=== PATIENT | male | born 1955 | race Caucasian/White ===

== ENCOUNTER 2023-01-01 00:09 | Emergency (ER) | payer MEDICARE, OTHER, SELFPAY ==
--- NOTE | ~2023-01-01 | CT_ITS ---
EXAMINATION: CT brain wo con DATE: 01/01/2023 00:43 INDICATION: Fall with head injury TECHNIQUE: Computed tomography (CT) of the head was performed without intravenous contrast. Sagittal and coronal reconstructions were performed. The mA was adjusted according to patient size. Iterative reconstruction technique was employed. The dose-length product was 605.33 mGy-cm. COMPARISON: None FINDINGS: Left parieto-occipital scalp hematoma with likely laceration. No fracture. No acute intracranial hemo rrhage, acute infarction or abnormal extra axial fluid collection. There is moderate scattered white matter hypoattenuation consistent with chronic small vessel ischemic disease. Ventricles are normal and symmetric. No mass/mass effect. Intracranial calcified cerebral atheroscler osis is noted. The orbits, paranasal sinuses and mastoid air cells are normal. IMPRESSION: 1. No fracture or acute intracranial process. 2. Moderate scattered white matter hypoattenuation consistent with chronic small vessel ischemic dise ase. Reviewed, dictated and finalized at location A. IMPRESSION: 1. No fracture or acute intracranial process. 2. Moderate scattered white matter hypoattenuation consistent with chronic smal l vessel ischemic disease.
--- NOTE | ~2023-01-01 | XR_ITS ---
EXAMINATION: XR knee LT min 4V DATE: 01/01/2023 02:03 INDICATION: Left knee pain and abrasions post fall TECHNIQUE: Anteroposterior, 2 oblique and crosstable lateral views of the left knee were obtained COMPARISON: None. FINDINGS: Alignment is normal. No fracture. Mild to moderate joint space narrowing at the patellofemoral giana rtment of the left knee. Tiny marginal osteophytes at the medial lateral compartments. Small heteroto pic ossicle along the head of the fibula which could be either enthesopathic or sequela of old trauma . No joint effusion/layering lipohemarthrosis. Prepatellar soft tissue swelling. IMPRESSION: 1. No left knee joint effusion or acute osseous abnormality. 2. Tricompartmental osteoarthritis, predominant with mild to moderate severity at the patellofemoral compartment. Reviewed, dictated and finalized at location A.
--- NOTE | ~2023-01-01 | XR_ITS ---
EXAMINATION: XR knee RT min 4V DATE: 01/01/2023 02:04 INDICATION: Right knee pain and abrasions post fall TECHNIQUE: Anteroposterior, 2 oblique and crosstable lateral views of the right knee were obtained COMPARISON: None. FINDINGS: Old healed fracture deformity at the proximal neck of the right fibula. Alignment remains essentially anatomic. No other fractures identified. Mild tricompartmental osteoarthritis with small marginal os teophytes in all 3 compartments. Joint spaces appear relatively preserved although this could be unde restimated at the medial and lateral compartments on nonweightbearing imaging. Small amount of enthes opathic ossification at the distal quadriceps tendon. Mild prepatellar soft tissue swelling. Possible small right knee joint effusion. Vascular calcifications at the distal thigh and proximal calf. IMPRESSION: 1. Mild tricompartmental osteoarthritis at the right knee. No acute osseous abnormality. Reviewed, dictated and finalized at location A. IMPRESSION: 1. Mild tricompartmental osteoarthritis at the right knee. No acute osseous abn ormality.
--- NOTE | ~2023-01-01 | CT_ITS ---
EXAMINATION: CT cervical spine wo con DATE: 01/01/2023 00:44 INDICATION: Fall with head injury TECHNIQUE: Computed tomography (CT) of the cervical spine was performed without intravenous contrast. Automated exposure control and iterative reconstruction technique were employed. The dose-length pro duct was 770.79 mGy-cm. COMPARISON: None FINDINGS: Alignment is normal. Vertebral body heights are normal. No fracture. Moderate disc height loss at C6- C7 and C7-T1. Mild disc height loss at C4-C5 and at multiple levels in the upper thoracic spine. Mode rate right-sided and severe left-sided uncovertebral osteoarthritis resulting in mild bilateral neura l foraminal stenosis at C5-C6 and moderate left-sided uncovertebral osteoarthritis at C6-C7 contribut ing to moderate left neural foraminal stenosis. Mild uncovertebral osteoarthritis at many of the warner ining cervical levels. Moderate facet osteoarthritis on the right at C4-C5 with mild facet osteoarthr itis at the remaining cervical levels. Small posterior disc osteophyte complex resulting in minimal c entral canal stenosis at C5-C6. Atherosclerotic calcifications at the bilateral carotid bulbs. Cervic al soft tissues are unremarkable. Mild dependent atelectasis in the visualized upper lungs. Thoracic aorta is normal in caliber. Median sternotomy wires and mediastinal surgical clips are seen, likely f rom prior coronary artery bypass grafting. Calcified right hilar and mediastinal lymph nodes consiste nt with old granulomatous disease. IMPRESSION: 1. Moderate cervical spondylosis. No acute osseous abnormality. Reviewed, dictated and finalized at location A.
[2023-01-01 00:11] VITALS: BP 144/76; PULSE 90; RESP 18; TEMP 36.6; O2SAT 95
--- NOTE | 2023-01-01 00:55 | PC.NURSE ---
Pt also admits to drinking alcohol. Unknown amount.
--- NOTE | 2023-01-01 01:21 | ED.FALL ---
HPI - Fall General Chief Complaint: Fall <Danni Asencio PA-C - Last Filed: 01/01/23 03:17> Stated Complaint: fall <Danni Asencio PA-C - Last Filed: 01/01/23 03:17> Time Seen by Provider: 01/01/23 00:19 <Danni Asencio PA-C - Last Filed: 01/01/23 03:17> History of Present Illness HPI Narrative: 67-year-old male with a history of 5 coronary artery stents reports for evaluation post fall. Patient reports he had 3 12 ounce beers tonight, was in the kitchen doing his dishes when he turned around and tripped over the trash can causing him to hit his head against the counter. Denies LOC. Reports he also injured his bilateral knees. Denies vision changes, dizziness, chest pain or shortness of breath prior to the fall. Last tetanus unknown. Denies drug use. <DOC Nunez Last Filed: 01/01/23 03:17> Related Data Allergies/Adverse Reactions: Allergies Allergy/AdvReac Type Severity Reaction Status Date / Time Sulfa (Sulfonamide Allergy Hives Verified 01/06/23 10:22 Antibiotics) <DOC Nunez Last Filed: 01/01/23 03:17> Review of Systems Review of Systems: CONSTITUTIONAL: Denies fever, chills EYES: Denies visual changes, redness, or discharge. ENT: Denies rhinorrhea, congestion, sore throat, or otalgia. CARDIOVASCULAR: Denies chest pain, palpitations, or edema. RESPIRATORY: Denies cough or dyspnea. GASTROINTESTINAL: Denies abdominal pain, nausea, vomiting, or diarrhea. GENITOURINARY: Denies dysuria or hematuria. SKIN: Denies rash or itching. MUSCULOSKELETAL: Denies back pain, joint pain, or myalgia. NEUROLOGIC: Denies headache, numbness, dizziness, or weakness. PSYCHIATRIC: Denies anxiety or depression. <Danni Asencio PA-C - Last Filed: 01/01/23 03:17> Exam Narrative: GENERAL: Well-appearing, well-nourished, and in no acute distress. Pt appears intoxicated. HEAD: 3 cm linear vertical laceration to posterior scalp. No tenderness to remaining scalp. No hematomas or other lesions. No foley sign or raccoon eyes. EYES: PERRLA and EOMI. ENT: Nares clear, no rhinorrhea or epistaxis. Mucous membranes moist. Oropharynx without tonsillar hypertrophy exudate or other lesions. Bilateral TMs pearly perez nonbulging, no hemotympanums NECK: Supple. No adenopathy or masses. No vertebral midline tenderness, step-offs or deformities. CHEST: Clear to auscultation. No respiratory distress. No wheezes rales or rhonchi HEART: Regular rate and rhythm. No murmur heard. Normal peripheral pulses. ABDOMEN: Soft, nontender, nondistended, normal active bowel sounds. EXTREMITIES: Diffuse tenderness to bilateral knees. Small abrasion overlying the anterior aspect of the left knee. Full range of motion of both knees. PT pulses identified on ultrasound. No tenderness to BUE. No tenderness to hips or pelvis. Full ROM of bilteral hips. Radial pulses 2+. SKIN: Warm, dry, no rash. NEURO: No focal deficits. Alert and oriented x3. CN II-XII intact. Strength 5/5 in BUE and BLE. Sensation intact throughout. PSYCH: Normal mood and affect. <Danni Asencio PA-C - Last Filed: 01/01/23 03:17> Course DIRECTOR OF ENTERTAINMENT/PA Physician Supervision This is a was performed by both a physician and an APC. I performed all aspects of the MDM as documented w/ the following additions: 59-year-old male presenting ED intoxicated after mechanical fall. The patient has laceration to his head which was repaired. [place]allpa components of all procedures performed under my supervision CT head and C-spine were negative for acute injury. At this time patient was conversant and able to walk with a steady gait. He is discharged in custody of his friend and return precautions given.All questions answered. Patient in agreement w/ disposition. <Kevan Rooney MD - Last Filed: 01/06/23 19:20> Vital Signs Vital signs: Vital Signs Temperature 98 F 01/01/23 00:11 Pulse Rate 90 01/01/23 00:11 Respiratory Rate 18 0
[2023-01-01 01:54] LABS: Basophils Absolute Auto 0.1 K/mm3 (0.0-0.1); Basophils Percent Auto 0.8 % (0.2-1.2); Eosinophils Absolute Auto 0.2 K/mm3 (0-0.3); Eosinophils Percent Auto 2.3 % (0-4.4); Hematocrit 54.8 % (42.0-52.0); Hemoglobin 17.9 g/dL (14.0-18.0); Immature Granulocyte Absolute 0.05 K/mm3 (0.00-0.031); Immature Granulocyte Percent A 0.6 % (0-0.5); Lymphocytes Absolute Auto 2.31 K/mm3 (0.9-3.2); Lymphocytes Percent Auto 26.1 % (18.3-44.2); Mean Corpuscular HGB Conc 32.7 g/dl (32-36); Mean Corpuscular Hemoglobin 31.7 pg (26-34); Mean Corpuscular Volume 97.2 fl (80-100); Mean Platelet Volume 10.2 fl (7.4-10.4); Monocytes Absolute Auto 0.8 K/mm3 (0.1-0.6); Monocytes Percent Auto 8.5 % (2.6-8.5); Neutrophils Absolute Auto 5.5 K/mm3 (1.3-6.7); Neutrophils Percent Auto 61.7 % (45.5-73.1); Platelet Count Result 259 k/mm3 (150-375); Red Blood Count 5.64 M/mm3 (4.6-6.20); Red Cell Distribution Width 13.2 % (11.5-14.5); White Blood Count 8.9 K/mm3 (4.5-10.0)
[2023-01-01 02:01] LABS: Ethanol 245 mg/dL (<10)
[2023-01-01 02:02] LABS: Alanine Aminotransferase 35 U/L (6-50); Albumin Level 4.5 g/dL (3.5-5.1); Alkaline Phosphatase 84 U/L (38-126); Anion Gap 10 mmol/L (8-16); Aspartate Amino Transferase 32 U/L (17-59); Bilirubin,Total 0.5 mg/dL (0.2-1.3); Blood Urea Nitrogen 13 mg/dL (9-20); Calcium 8.8 mg/dL (8.4-10.2); Carbon Dioxide 28 mmol/L (22-30); Chloride 106 mmol/L (98-107); Estimated CRCL calculation 76 ml/min; Estimated Glomerular Filt Rate > 60; Glucose 113 mg/dL (65-110); Potassium 4.5 mmol/L (3.4-5.0); Sodium 144 mmol/L (137-145)
[2023-01-01 02:05] VITALS: O2SAT 94
[2023-01-01 02:06] VITALS: BP 130/86; PULSE 86; RESP 18; TEMP 36.6; O2SAT 96
[2023-01-01 03:43] VITALS: BP 122/81; PULSE 80; RESP 18; TEMP 36.6; O2SAT 99
== END 2023-01-01 03:44 | disposition home or self-care (01) ==
PROVIDERS: Emergency Provider Physician Assistant
DX: S01.01XA Laceration without foreign body of scalp, initial encounter (principal); M25.561 Pain in right knee; F10.920 Alcohol use, unspecified with intoxication, uncomplicated; W01.198A Fall on same level from slipping, tripping and stumbling with subsequent striking against other object, initial encounter; Z95.5 Presence of coronary angioplasty implant and graft; Z23 Encounter for immunization
CPT/HCPCS: 12002; 36415; 70450; 72125; 73564; 80053; 80307; 85025; 90471; 90715; 99284

== ENCOUNTER 2023-01-06 10:19 | Emergency (ER) | payer MEDICARE, OTHER, SELFPAY ==
[2023-01-06 10:20] VITALS: BP 140/92; PULSE 82; RESP 17; TEMP 36.4; O2SAT 96
--- NOTE | 2023-01-06 10:43 | ED_ITS ---
HPI - Recheck/Abnormal Lab/Rx General Chief Complaint: Recheck/Abnormal Lab/Rx Stated Complaint: needs alva removed Time Seen by Provider: 01/06/23 10:28 History of Present Illness HPI narrative: Patient is a 67-year-old male here requesting staple removal. He has alva placed only 5 days ago in the ED after he had a fall when he was intoxicated. States that the wound has been healing well and he wanted to come in today because his is getting surgery today and thought it would be convenient to come to the ED at the same time. No further complaints. He was told to have sutures removed in 7 days. Related Data Allergies Allergy/AdvReac Type Severity Reaction Status Date / Time Sulfa (Sulfonamide Allergy Hives Verified 01/06/23 10:22 Antibiotics) Review of Systems Review of Systems: Gen.: Denies fevers or chills Eyes: Denies eye pain or visual change ENT: Denies congestion Respiratory: Denies shortness of breath or cough CV: Denies chest pain or palpitations GI: Denies abdominal pain nausea, emesis or diarrhea : denies burning, urgency, frequency or hematuria Musculoskeletal: Denies back pain or muscle pain Neuro: Denies numbness, tingling, weakness or focal weakness Skin: Denies rash Except as documented, all other systems reviewed and negative Exam Narrative: Gen: Alert, oriented, no acute distress Eyes: EOMI, no icterus Pulm: Respirations even and unlabored, symmetric thorax expansion, no audible st ridor or visible cyanosis CV: Regular rate per telemetry GI: No distension, no voluntary/involuntary guarding Neuro: AOx4, moves all extremities without apparent difficulty or weakness, follows commands Skin: Patient has [address] to the right posterior head with an underlying scab Psych: Normal mood/affect, insight/judgement good, adequate fund of knowledge, recent/remote memory intact Course Vital Signs Vital signs: Vital Signs Temperature 97.6 F 01/06/23 10:20 Pulse Rate 82 01/06/23 10:20 Respiratory Rate 17 01/06/23 10:20 Blood Pressure 140/92 H 01/06/23 10:20 Pulse Oximetry 96 01/06/23 10:20 Temperature 97.6 F 01/06/23 10:20 Pulse Rate 82 01/06/23 10:20 Respiratory Rate 16 01/06/23 11:46 Blood Pressure 140/92 H 01/06/23 10:20 Pulse Oximetry 96 01/06/23 10:20 MDM - Recheck/Abnormal Lab/Rx MDM Narrative Medical decision making narrative: 67-year-old male here requesting staple removal. Explained to patient that he had alva placed only 5 days ago and premature removal may lead to complications such as reopening of the wound or continued bleeding. Patient is insisting to have his alva removed today. Alva were removed, there was some oozing from the inferior aspect of the wound; gauze was held to the wound. He was discharged home, we discussed return precautions and he voiced understanding. Discharge Plan Discharge Clinical Impression: Encounter for staple removal Patient Disposition: Home, Self-Care Condition: Stable Instructions: Antibiotic Form Additional Instructions: You had your alva removed prematurely today at your request. If you start to bleed again you may need to come back to have the alva placed again. Follow-up/Referrals: UNKNOWN,DOCTOR [Primary Care Provider] -
[2023-01-06 11:46] VITALS: RESP 16
== END 2023-01-06 11:47 | disposition home or self-care (01) ==
PROVIDERS: Emergency Provider Physician Assistant
DX: S01.00XD Unspecified open wound of scalp, subsequent encounter (principal); W19.XXXD Unspecified fall, subsequent encounter
CPT/HCPCS: 15853; 99281